=== PATIENT | female | born 1990 | race African-American/Black ===

== ENCOUNTER 2017-09-28 00:09 | Emergency (ER) | payer SELFPAY ==
[2017-09-28 00:30] VITALS: BP 129/71; PULSE 101; RESP 16; TEMP 98.6; O2SAT 100
[2017-09-28 01:13] VITALS: BP_SYST 119; BP_SYST 122; BP_SYST 132; BP_DIAS 57; BP_DIAS 64; BP_DIAS 68; RESP 16; RESP 18
[2017-09-28 01:18] VITALS: BP 128/78; PULSE 87; RESP 16; O2SAT 98
[2017-09-28 01:40] LABS: AUTOMATED NEUTROPHIL # 4.6 TH/MM3 (1.8-7.7); BASOPHIL # 0.1 TH/MM3 (0-0.2); BASOPHIL % 0.9 % (0.0-2.0); EOSINOPHIL % 0.7 % (0.0-4.0); HEMOGLOBIN 15.4 GM/DL (11.6-15.3); LYMPH % 24.8 % (9.0-44.0); LYMPHOCYTE # 1.8 TH/MM3 (1.0-4.8); MEAN CELL VOLUME 87.4 FL (80.0-100.0); MEAN CORPUSCULAR HEMOGLOBIN 30.5 PG (27.0-34.0); MEAN CORPUSCULAR HGB CONC 34.9 % (32.0-36.0); MEAN PLATELET VOLUME 8.7 FL (7.0-11.0); MONO % 8.5 % (0.0-8.0); MONOCYTE # 0.6 TH/MM3 (0-0.9); NEUT % 65.1 % (16.0-70.0); PLATELET COUNT 233 TH/MM3 (150-450); RED BLOOD COUNT 5.03 MIL/MM3 (4.00-5.30); RED CELL DISTRIBUTION WIDTH 13.6 % (11.6-17.2); WHITE BLOOD COUNT 7.1 TH/MM3 (4.0-11.0)
[2017-09-28] MEDS ORDERED: SODIUM CHLOR 0.9% 1000 ML INJ 1,000 ML IV ONE ×2 (01:45→03:45)
[2017-09-28] MEDS ORDERED: FAMOTIDINE 20 MG/2 ML VIAL IV PUSH SCH (01:45)
[2017-09-28 01:46] LABS: BILIRUBIN, URINE NEG (NEG); BLOOD, URINE SMALL (NEG); GLUCOSE,URINE NEG (NEG); KETONE, URINE 40 mg/dL (NEG); MUCUS URINE MOD /lpf (OCC); NITRITE,URINE NEG (NEG); PH, URINE 5.5 (5.0-8.5); SQUAMOUS EPITHELIAL CELL URINE 42 /hpf (0-5); URINE COLOR YELLOW (YELLW/STRAW); URINE LEUKOCYTE ESTERASE LARGE (NEG)
[2017-09-28 01:50] LABS: ALKALINE PHOSPHATASE 67 U/L (45-117); TOTAL BILIRUBIN ADULT 0.3 MG/DL (0.2-1.0); TOTAL PROTEIN 8.5 GM/DL (6.4-8.2)
[2017-09-28 02:02] LABS: ALBUMIN 4.2 GM/DL (3.4-5.0); ALT (GPT) 72 U/L (10-53); AST (GOT) 94 U/L (15-37); BICARBONATE 22.9 MEQ/L (21.0-32.0); BLOOD UREA NITROGEN 5 MG/DL (7-18); CALCIUM 8.7 MG/DL (8.5-10.1); CHLORIDE 100 MEQ/L (98-107); CREATININE 0.73 MG/DL (0.50-1.00); GLOMERULAR FILTRATION RATE 114 ML/MIN (>89); GLUCOSE,RANDOM 71 MG/DL (74-106); SODIUM (NA) 140 MEQ/L (136-145)
--- NOTE | 2017-09-28 02:41 | PD ---
HPI Chief Complaint: Abdominal Pain Time Seen by Provider: 01:24 Travel History International Travel<30 days: No Contact w/Intl Traveler<30days: No Traveled to known affect area: No History of Present Illness HPI Patient complains of abdominal pain and nausea and then vomiting and then she says there was blood in her vomitus. She reports that it was darkish digested looking blood she says. She says she is a heavy drinker and drinks daily and it would not be surprised if it was blood. He is unaware whether she has injured her liver or has any portal hypertension. Is a 27-year-old female with no significant past medical history other than the heavy drinking for over months. Her main complaint is nausea vomiting 3 times with coffee ground digested looking blood pain sharp burning in her epigastrium. She did not take any medications for this she has no history of GI bleed she has no history of ulcers. But she says I would not be surprised by had bleeding ulcers on heavy drinker she is unaware whether she has LFT issues liver issues or portal hypertension. She has not seen another doctor for this complaint she is not taking any medication for this complaint she reports only thing in her stomach was beer so it was not undigested food it was digested blood she says PFSH Past Medical History Bipolar Disorder: Yes Anxiety: Yes Depression: Yes Diminished Hearing: No Medical other: Yes (PCOS, PTSD ) Thyroid Disease: Yes (HYPER ) ?: Unknown LMP: 04/10/18 Social History Alcohol Use: Yes (EVERYDAY ) Tobacco Use: Yes (EVERYDAY ) Substance Use: Yes (MARIJUANA ) Allergies-Medications (Allergen,Severity, Reaction): Coded Allergies: cefaclor (Verified Allergy, Intermediate, 09/28/17) Reported Meds & Prescriptions Reported Meds & Active Scripts Active Cipro (Ciprofloxacin HCl) 500 Mg Tab 500 Mg PO BID Pepcid (Famotidine) 20 Mg Tab 20 Mg PO BID Omeprazole 20 Mg Tab 20 Mg PO DAILY Review of Systems Except as stated in HPI: all other systems reviewed are Neg Physical Exam Narrative GENERAL: Patient was sleeping heavy when I came in the room but wakes up there is a smell of alcohol on her breath. SKIN: Warm and dry. HEAD: Atraumatic. Normocephalic. EYES: Pupils equal and round. No scleral icterus. No injection or drainage. ENT: No nasal bleeding or discharge. Mucous membranes pink and moist. NECK: Trachea midline. No JVD. CARDIOVASCULAR: Regular rate and rhythm. RESPIRATORY: No accessory muscle use. Clear to auscultation. Breath sounds equal bilaterally. GASTROINTESTINAL: Abdomen soft nondistended but there is epigastric tenderness she also has some lower right abdominal tenderness. She is thin body habitus with nondistended abdomen. MUSCULOSKELETAL: Extremities without clubbing, cyanosis, or edema. No obvious deformities. NEUROLOGICAL: Awake and alert. No obvious cranial nerve deficits. Motor grossly within normal limits. Five out of 5 muscle strength in the arms and legs. Normal speech. PSYCHIATRIC: Appropriate mood and affect; insight and judgment normal. Data Data Last Documented VS Vital Signs Date Time Temp Pulse Resp B/P (MAP) Pulse Ox O2 Delivery O2 Flow Rate FiO2 09/28/17 06:07 09/28/17 05:35 84 16 88 16 98 17 09/28/17 02:51 98 Room Air 09/28/17 00:30 98.6 Orders Orders Complete Blood Count With Diff (09/28/17 01:10) Comprehensive Metabolic Panel (09/28/17 01:10) Prothrombin Time / Inr (Pt) (09/28/17 01:10) Act Partial Throm Time (Ptt) (09/28/17 01:10) Ecg Monitoring (09/28/17 01:10) Orthostatic Vital Signs (09/28/17 01:10) Oximetry (09/28/17 01:10) Oxygen Administration (09/28/17 01:10) Iv Access Insert/Monitor (09/28/17 01:10) Type And Screen (09/28/17 01:10) Urinalysis - C+S If Indicated (09/28/17 01:10) Ed Urine Pregnancytest Poc (09/28/17 01:10) Famotidine Inj (Pepcid Inj) (09/28/17 01:45) Sodium Chlor 0.9% 1000 Ml Inj (Ns 1000 M (09/28/17 01:45) Urine Culture (09/28/17 01:22) Ondansetron Inj (Zofran Inj) (09/28/17 03:00) Ondansetron Inj (Zofran Inj) (09/28/17 03:15) Pantoprazole Inj (Protonix Inj) (09/28/17 03:15) Sodium Chlor 0.9% 1000 Ml Inj (Ns 1000 M (09/28/17 03:45) Levofloxacin (Levaquin) (09/28/17 05:15) Ed Discharge Order (09/28/17 06:10) Labs Laboratory Tests Test 09/28/17 01:22 White Blood Count 7.1 TH/MM3 Red Blood Count 5.03 MIL/MM3 Hemoglobin 15.4 GM/DL Hematocrit 44.0 % Mean Corpuscular Volume 87.4 FL Mean Corpuscular Hemoglobin 30.5 PG Mean Corpuscular Hemoglobin Concent 34.9 % Red Cell Distribution Width 13.6 % Platelet Count 233 TH/MM3 Mean Platelet Volume 8.7 FL Neutrophils (%) (Auto) 65.1 % Lymphocytes (%) (Auto) 24.8 % Monocytes (%) (Auto) 8.5 % Eosinophils (%) (Auto) 0.7 % Basophils (%) (Auto) 0.9 % Neutrophils # (Auto) 4.6 TH/MM3 Lymphocytes # (Auto) 1.8 TH/MM3 Monocytes # (Auto) 0.6 TH/MM3 Eosinophils # (Auto) 0.0 TH/MM3 Basophils # (Auto) 0.1 TH/MM3 CBC Comment DIFF FINAL Differential Comment Prothrombin Time 10.0 SEC Prothromb Time International Ratio 1.0 RATIO Activated Partial Thromboplast Time 20.9 SEC Urine Color YELLOW Urine Turbidity HAZY Urine pH 5.5 Urine Specific [place] 1.009 Urine Protein TRACE mg/dL Urine Glucose (UA) NEG mg/dL Urine Ketones 40 mg/dL Urine Occult Blood SMALL Urine Nitrite NEG Urine Bilirubin NEG Urine Urobilinogen LESS THAN 2.0 MG/DL Urine Leukocyte Esterase LARGE Urine RBC 2 /hpf Urine WBC 19 /hpf Urine Squamous Epithelial Cells 42 /hpf Urine Mucus MOD /lpf Microscopic Urinalysis Comment CULTURE INDICATED Blood Urea Nitrogen 5 MG/DL Creatinine 0.73 MG/DL Random Glucose 71 MG/DL Total Protein 8.5 GM/DL Albumin 4.2 GM/DL Calcium Level 8.7 MG/DL Alkaline Phosphatase 67 U/L Aspartate Amino Transf (AST/SGOT) 94 U/L Alanine Aminotransferase (ALT/SGPT) 72 U/L Total Bilirubin 0.3 MG/DL Sodium Level 140 MEQ/L Potassium Level 4.0 MEQ/L Chloride Level 100 MEQ/L Carbon Dioxide Level 22.9 MEQ/L Anion Gap 17 MEQ/L Estimat Glomerular Filtration Rate 114 ML/MIN MDM Medical Decision Making Medical Screen Exam Complete: Yes Emergency Medical Condition: Yes Differential Diagnosis pt has vomit and abdo pain and viral ,vs etoh gastritis with erosions of esophogus lining versus other causes of vomit and abdo pain Narrative Course pt vomiting reports excessive etoh but in ER she has no vomit . I resusitate her with IV NS 3 liters zofran 4mg protonix 40mg and d/c then with omeprazole and pepcid and advise to abstain from etoh . pt agrees with plan Pt given Cipro PO for UTI and outpt follow up info given Diagnosis Primary Impression: Alcohol abuse Additional Impression: UTI (urinary tract infection) Qualified Codes: N30.00 - Acute cystitis without hematuria Referrals: Tawny Salas MD Patient Instructions: Abuse of Alcohol (ED), General Instructions Additional Instructions: Refrain from drinking alcohol take the antacid and the omeprazole. And call the gastroenterology doctor on your discharge papers for further evaluation and endoscopy. Return to the ER immediately for any return of vomiting blood Scripts Ciprofloxacin (Cipro) 500 Mg Tab 500 MG PO BID for Infection, #14 TAB 0 Refills Prov: Sam Varghese MD 09/28/17 Famotidine (Pepcid) 20 Mg Tab 20 MG PO BID, #20 TAB 0 Refills Prov: Sam Varghese MD 09/28/17 Omeprazole (Omeprazole) 20 Mg Tab 20 MG PO DAILY, #30 TAB 0 Refills Prov: Sam Varghese MD 09/28/17 Disposition: 01 DISCHARGE HOME Condition: Good Sam Varghese MD Sep 28, 2017 02:41
[2017-09-28 02:51] VITALS: BP 108/58; PULSE 98; RESP 16; O2SAT 98
[2017-09-28] MEDS ORDERED: ONDANSETRON HCL 4 MG/2 ML VIAL ONE (03:00)
[2017-09-28] MEDS ORDERED: ONDANSETRON HCL 4 MG/2 ML VIAL IV PUSH ONE (03:15)
[2017-09-28] MEDS ORDERED: PANTOPRAZOLE SODIUM 40 MG VIAL IV PUSH ONE (03:15)
[2017-09-28 03:56] VITALS: BP_SYST 91; BP_SYST 92; BP_SYST 99; BP_DIAS 44; BP_DIAS 46; BP_DIAS 51; RESP 16; RESP 17
[2017-09-28] MEDS ORDERED: LEVOFLOXACIN 750 MG TAB PO ONE (05:15)
[2017-09-28 05:35] VITALS: BP_SYST 117; BP_SYST 118; BP_SYST 122; BP_DIAS 55; BP_DIAS 62; BP_DIAS 64; RESP 16; RESP 17
[2017-09-28] MEDS ORDERED: FAMO1TAB37 PO (05:42)
[2017-09-28] MEDS ORDERED: OMEP20TA93 PO (05:42)
[2017-09-28] MEDS ORDERED: CIPR-9 PO (05:45)
== END 2017-09-28 06:07 | disposition home or self-care (01) ==
LOC: NEPE 00:09
DX: F10.10 Alcohol abuse, uncomplicated (principal); N30.00 Acute cystitis without hematuria; F17.200 Nicotine dependence, unspecified, uncomplicated; F12.90 Cannabis use, unspecified, uncomplicated
CPT/HCPCS: 80053; 81001; 84703; 85025; 85610; 85730; 86850; 86900; 86901; 87077; 87086; 87186; 96361; 96374; 96375; 99283; C9113; J2405; J7030